=== PATIENT | male | born 1945 | race African-American/Black ===

== ENCOUNTER 2023-01-27 17:30 | Emergency (ER) | payer MEDICARE ==
[~2023-01-27] VITALS: Ht 185.4 cm; Wt 85.7 kg
[2023-01-27 18:56] LABS: APPEARANCE,URINE SLIGHTLY CLOUDY (CLEAR); BILIRUBIN,URINE NEGATIVE (NEGATIVE); BLOOD, URINE TRACE-INTA Ery/uL (NEGATIVE); COLOR,URINE YELLOW (YELLOW); KETONES,URINE NEGATIVE (NEGATIVE); LEUKOCYTE ESTERASE ,URINE 2+ (NEGATIVE); NITRITE, URINE POSITIVE (NEGATIVE); PROTEIN,URINE NEGATIVE (NEGATIVE); UGLUCOSE NEGATIVE (NEGATIVE)
[2023-01-27 19:16] LABS: ADD URINE CULTURE YES; BACTERIA,URINE 4+ /HPF (None Seen); RBC,URINE 0-2 /HPF (0-2); SQUAMOUS EPITHELIAL CELL,UR Few /HPF (None Seen); WBC,URINE 81-100 /HPF (0-3)
[2023-01-27] MEDS ORDERED: CIPROFLOXACIN HCL 500 MG TABLET PO ONE (19:30)
[2023-01-27] MEDS ORDERED: CIPR500T5 PO (19:31)
[2023-01-27] MEDS ORDERED: CIPROFLOXACIN HCL 500 MG TABLET ONE (19:35)
[2023-01-27] MEDS ORDERED: TAMS-12 PO (21:12)
[2023-01-27] MEDS ORDERED: TAMSULOSIN 0.4 MG CAP.SR.24H ONE (21:29)
[2023-01-27] MEDS ORDERED: TAMSULOSIN 0.4 MG CAP.SR.24H PO ONE (21:30)
[2023-01-27 23:41] VITALS: BP 144/71; TEMP 99.3; O2SAT 93
== END 2023-01-27 23:41 | disposition home or self-care (01) ==
LOC: ER 17:32
DX: N39.0 Urinary tract infection, site not specified (principal); N13.9 Obstructive and reflux uropathy, unspecified; J44.9 Chronic obstructive pulmonary disease, unspecified; Z79.899 Other long term (current) drug therapy
CPT/HCPCS: 81001; 87086-TC